=== PATIENT | female | born 1975 | race Hispanic/Latino ===

== ENCOUNTER 2018-12-28 08:46 | Day surgery (SDC) | payer OTHER ==
[2018-12-27 16:37] VITALS: BMI 36.1
[2018-12-28] MEDS ORDERED: Heparin 5,000 UNITS/ML VIAL ONE (09:10)
[2018-12-28 09:33] LABS: BHCG - Serum Negative (NEGATIVE); Pregs Control Background? CLEAR/WHITE (CLR/WHITE); Pregs Control Bar Appear? YES (CONTROL BAR)
[2018-12-28] MEDS ORDERED: Fentanyl 250 MCG/5 ML VIAL ONE (10:45)
[2018-12-28] MEDS ORDERED: Promethazine HCl 25 MG/ML VIAL ONE (10:46)
[2018-12-28] MEDS ORDERED: Lidocaine 1% (PF) 30 ML VIAL ONE (11:16)
[2018-12-28] MEDS ORDERED: Bupivacaine/Epinephrine 0.25% 30 ML VIAL ONE (11:16)
[2018-12-28] MEDS ORDERED: Gentamicin 80 MG/2 ML VIAL ONE (11:16)
[2018-12-28] MEDS ORDERED: EPINEPHrine 1 MG/ML AMP ONE (11:16)
[2018-12-28] MEDS ORDERED: Bupivacaine 0.25% HCL 30 ML VIAL ONE (11:50)
[2018-12-28] MEDS ORDERED: HYDROmorphone 0.5 MG/0.5 ML SYRINGE ONE ×2 (15:06→17:31)
[2018-12-28] MEDS ORDERED: Rocuronium Bromide 10 MG/ML (10ML VIAL) ONE (15:43)
[2018-12-28] MEDS ORDERED: Glycopyrrolate 0.2 MG/ML 5 ML SYRINGE ONE (15:43)
[2018-12-28] MEDS ORDERED: Lidocaine 1% PF 5 ML VIAL ONE (15:43)
[2018-12-28] MEDS ORDERED: Metoclopramide HCl 10 MG/2 ML VIAL ONE (15:43)
[2018-12-28] MEDS ORDERED: Vecuronium 10 MG VIAL ONE (15:43)
[2018-12-28] MEDS ORDERED: PROPOFOL 200 MG/20 ML VIAL ONE (15:43)
[2018-12-28] MEDS ORDERED: Dexamethasone 20 MG/5 ML VIAL ONE (15:43)
[2018-12-28] MEDS ORDERED: Ondansetron PF 4 MG/2 ML Vial ONE (15:43)
[2018-12-28] MEDS ORDERED: Ketorolac Tromethamine 30 MG/ML VIAL ONE (15:43)
[2018-12-28] MEDS ORDERED: CEFAZOLIN 1 GM VIAL ONE (16:43)
[2018-12-28] MEDS ORDERED: Labetalol HCl 100 MG/20 ML VIAL ONE (18:37)
[2018-12-28] MEDS ORDERED: HYDROcodone/Acetaminophen 5/325 mg Tablet ONE (19:29)
--- NOTE | 2018-12-30 17:22 | EKG ---
Test Reason : PREOP Blood Pressure : / mmHG Vent. Rate : 059 BPM Atrial Rate : 059 BPM P-R Int : 152 ms QRS Dur : 090 ms QT Int : 428 ms P-R-T Axes : 050 031 051 degrees QTc Int : 423 ms Sinus bradycardia Otherwise normal ECG No previous ECGs available Confirmed by SHIKHA FERNANDEZ (2) on 12/30/2018 5:22:05 PM Referred By: RAVEN Confirmed By:SHIKHA FERNANDEZ
--- NOTE | 2018-12-31 10:41 | OP ---
DATE OF PROCEDURE: 12/28/2018 PREOPERATIVE DIAGNOSES: 1. Massive weight loss. 2. Breast ptosis. 3. Excess abdominal skin. OPERATIVE FINDINGS: Abdominal tissue excised was over 9 pounds. DESCRIPTION OF PROCEDURE: Following induction of adequate anesthesia, the patient was prepped and draped in usual sterile fashion in supine position. Attention was first turned to her breast. A modified Narvaez pattern incision was made as well as incising around the nipple with 45 mm nipple sizer. The inferior pole of the breast was then de-epithelialized. Skin flaps were then raised superiorly, medially, and laterally. The breast pedicle was then sutured and elevated to the chest wall using interrupted 2-0 PDS suture. The field was copiously irrigated and inspected for meticulous hemostasis. The inverted T was then closed with 3-0 PDS suture and 3 -0 Monocryl suture. The nipple was brought out through a 45-mm nipple defect and similarly inset. A drain was placed prior to closure. Similar procedure was done on the right side except the fact that some breast tissue was excised laterally to improve symmetry. Attention was turned to the abdomen. The patient's abdomen presented certain challenges, namely a very large open gallbladder incision. The patient's excess skin necessitated a [id number]. The length of the gallbladder incision could not be cut out with a midline incision. Therefore, the vertical incision was moved toward the right to become a paramedian for the [id number]. The wedge of skin vertically was excised. The vertical excision was brought close to the umbilicus. The incision pattern was then curved more to the left to incorporate the paraumbilical perforators while excising the umbilicus. If the incision was brought to the right of the umbo it would have been immediately adjacent to the defect leaving a tenuous strip of tissue; therefore it was directed to the left. The umbilical stalk was inspected. It was incised below the pouch of epidermal skin. There was no evidence of hernia. It was sewn shut with 3-0 PDS suture as a precaution. The transverse wedge of skin was then excised inferiorly. The patient's intraabdominal fat was sufficient where the abdominal wall was not significantly loose enough to warrant plication. All flaps were designed to bevel where there was no to minimal undermining of any of the flaps. The closure was then achieved in layers using two interrupted 2-0 PDS suture for the superficial fascial system followed by 2-0 V- Loc suture. The dermal edges were approximated with interrupted 3-0 PDS suture and running 3-0 Monocryl suture. This field was copiously irrigated and inspected for meticulous hemostasis prior to closure and also drains were placed. Two 10- Wolof drains were placed vertically and a Y-shaped drain was placed inferiorly at the bottom. The patient tolerated the procedure well. All incisions were dressed with Dermabond. Job ID: [id number] [facility]
== END 2018-12-28 20:50 | disposition home or self-care (01) ==
LOC: SDC 08:46
PROVIDERS: ATTEND Plastic Surgery
PROC: 0J083ZZ Alteration of Abdomen Subcutaneous Tissue and Fascia, Percutaneous Approach (ICD-10-PCS; principal; 2018-12-28)
PROC: 0HQT0ZZ Repair Right Breast, Open Approach (ICD-10-PCS; principal; 2018-12-28)
DX: N64.81 Ptosis of breast (principal); L98.7 Excessive and redundant skin and subcutaneous tissue; R63.4 Abnormal weight loss; I10 Essential (primary) hypertension; Z68.36 Body mass index [BMI] 36.0-36.9, adult
CPT/HCPCS: 36415; 84703; 88305; 93005; 93010; J0171; J0690; J1100; J1170; J1580; J1644; J1885; J2001; J2405; J2550; J2704; J2765; J3010; J3370; J3490; S0020